=== PATIENT | male | born 1990 | race Caucasian/White ===

== ENCOUNTER 2020-06-27 11:41 | Emergency (ER) | payer BC ==
[~2020-06-27] VITALS: Ht 188 cm; Wt 127.9 kg
--- NOTE | 2020-06-27 12:18 | NUR ---
BIBFIANCE FROM HOME TO ER BED 6. AWAKE, ALERT BUT CONFUSED. NOT IN RESP DISTRESS, BREATHING EVEN AND UNLABORED. AMBULATORY. BROUGHT IN FOR CONFUSION. PER FIANCE, PT DOES NOT KNOW WHAT IS GOING ON. SHE REPORTS THAT HE CANT REMEMBER ANYTHING. LAST KNOWN WELL TIME WAS 0845. NO NEURO DEFICIT NOTED. MD WAS AT THE BEDSIDE FOR EVAL. ORDERS RECEIVED, NOTED AND CARRIED OUT. IV LINE ESTABLISHED ON R AC 18G, BLOOD DRAWN AND GIVEN TO PHELB. PT ON MONITOR
--- NOTE | 2020-06-27 12:20 | NUR ---
PT GIRLFRIEND STATES AND SHOWED THAT THE PATIENT HAD A 1/2 BLUE TAB OF UNKNOWN KIND. PT DOES NOT REMEMBER THE OTHER HALF.
[2020-06-27 12:22] LABS: BASOPHILS % (AUTO) 0.1 % (0.0-2.0); EOSINOPHILS % (AUTO) 0.3 % (0.0-6.0); HEMATOCRIT 46 % (39-51); HEMOGLOBIN 15.2 g/dL (13.5-17.5); LYMPHOCYTES # (AUTO) 1.8 /CMM (0.8-4.8); LYMPHOCYTES % (AUTO) 10.3 % (20.0-44.0); MEAN CORPUSCULAR HGB CONC 33 g/dl (31.0-36.0); MEAN CORPUSCULAR VOLUME 92 fL (80-96); MONOCYTES % (AUTO) 5.9 % (2.0-12.0); NEUTROPHILS # (AUTO) 14.4 /CMM (1.8-8.9); NEUTROPHILS % (AUTO) 83.4 % (43.0-81.0); PLATELET COUNT (AUTO) 232 /CMM (150-450); RED BLOOD CELL COUNT(AUTO) 5.04 MIL/uL (4.5-6.0); WHITE BLOOD COUNT (AUTO) 17.3 K/uL (4.3-11.0)
[2020-06-27] MEDS ORDERED: ONDANSETRON HCL/PF 4 MG/2 ML VIAL ONE (12:25)
--- NOTE | 2020-06-27 12:29 | NUR ---
PT HAD AN EPISODE OF VOMMITING X 1. MOSTLY WATER. MD MADE AWARE. VERBAL ORDER RECEIVED TO GIVEN ZOFRAN 4MG IV X 1. NOTED AND CARRIED OUT
[2020-06-27] MEDS ORDERED: ONDANSETRON HCL/PF 4 MG/2 ML VIAL IV ONE (12:30)
--- NOTE | 2020-06-27 12:30 | NUR ---
PT TO CT ON [place]
[2020-06-27 12:42] LABS: ACETAMINOPHEN < 10 ug/ml (10-30); ALANINE AMINOTRANSFERASE 49 U/L (12-78); ALBUMIN 4.1 g/dL (3.4-5.0); ALCOHOL, BLOOD < 3 mg/dL (0-0); ALKALINE PHOSPHATASE 62 U/L (46-116); ASPARTATE AMINOTRANSFERASE 28 U/L (15-37); BILIRUBIN,DIRECT 0.1 mg/dL (0.0-0.2); BILIRUBIN,TOTAL 0.3 mg/dL (0.2-1.0); CALCIUM, SERUM 8.4 mg/dL (8.5-10.1); CARBON DIOXIDE 27 mmol/L (21-32); CHLORIDE 104 mmol/L (98-107); CREATININE 1.4 mg/dL (0.6-1.3); GLUCOSE 152 mg/dL (74-106); POTASSIUM 3.4 mmol/L (3.5-5.1); SODIUM SERUM 141 mmol/L (136-145); TOTAL PROTEIN, SERUM 7.5 g/dL (6.4-8.2); UREA NITROGEN, BLOOD 15 mg/dL (7-18)
[2020-06-27 12:49] LABS: BILIRUBIN,URINE Negative (NEGATIVE); COLOR,URINE YELLOW (YELLOW); LEUKOCYTE ESTERASE ,URINE Negative (NEGATIVE); NITRITE, URINE Negative (NEGATIVE); PROTEIN,URINE 100 mg/dl (NEGATIVE); UGLUCOSE 500 MG/DL mg/dL (NEGATIVE); UROBILINOGEN,URINE 0.2 EU/dL (0.2)
--- NOTE | 2020-06-27 12:58 | NUR ---
FOLLOWED UP WITH LAB REGARDING DRUG SCREEN
[2020-06-27 12:59] LABS: BACTERIA,URINE Rare /HPF (None Seen); RBC,URINE 0-2 /HPF (0-2); WBC,URINE 0-2 /HPF (0-3)
[2020-06-27 13:00] LABS: SQUAMOUS EPITHELIAL CELL,UR 0-2 /HPF (None Seen)
[2020-06-27 13:01] LABS: MUCUS,URINE Moderate /LPF (None Seen)
--- NOTE | 2020-06-27 13:45 | NUR ---
PT VERBALIZED THAT HE IS STARTED TO TO REMEMEBER. HE VERBALIZED THAT HE TOOK A BITE FROM A PILL THAT WAS GIVEN BY A CO WORKER. THE PILLS IS ROUND BLUE WITH MARKINGS "M" INSIDE A SQUARE AND 30 ON THE REVERSE SIDE. MADE AWARE
--- NOTE | 2020-06-27 14:19 | NUR ---
PO challenge tolerated by the pt.
--- NOTE | 2020-06-27 14:20 | NUR ---
Patient discharged to home in stable condition. Written and verbal after care instructions given. Patient verbalizes understanding of instruction.IV removed. Catheter intact and site benign. Pressure and 4x4 applied to site. No bleeding noted. Pt ambulatory with a steady gait
[2020-06-27 14:22] VITALS: BP 131/83
== END 2020-06-27 14:23 | disposition home or self-care (01) ==
LOC: ER 11:41
DX: G93.40 Encephalopathy, unspecified (principal); T65.91XA Toxic effect of unspecified substance, accidental (unintentional), initial encounter; Y92.89 Other specified places as the place of occurrence of the external cause
CPT/HCPCS: 36415; 70450; 80048; 80076; 80299; 80307; 80320; 81001; 85025; 96374; 99284; J2405; G0480